=== PATIENT | female | born 1970 | race Caucasian/White ===

== ENCOUNTER 2025-01-08 15:43 | Emergency (ER) | payer OTHER, SELFPAY ==
[2025-01-08 15:45] VITALS: BP 136/95
--- NOTE | 2025-01-08 17:32 | ED.GENMED ---
History of Present Illness
General
Chief Complaint: Prescription Refill
Source: patient
Exam Limitations: none
Time Seen by Provider: 01/08/25 16:30
History of Present Illness
History of Present Illness:
Patient to the emergency department for 'prescription refill. States she was inpatient at a psych facility but signed her self out yesterday. She states she was not given a prescription for her medication. She reports that she takes lisinopril
gabapentin Seroquel and an albuterol inhaler as needed. Brought self to the emergency department for medication prescriptions.
Past History
Past History
ED Past Medical History: Psychiatric
Review of Systems
Review of Systems
Allergies reviewed?: Yes
All Other Systems: ROS reviewed and negative except as documented in HPI and ROS
Constitutional: Reports no symptoms
EENT: Reports no symptoms
Respiratory: Reports no symptoms
Cardiac: Reports no symptoms
ABD/GI: Reports no symptoms
: Reports no symptoms
Musculoskeletal: Reports no symptoms
Skin: Reports no symptoms
Neurological: Reports no symptoms
Psychiatric: Reports no symptoms
Phy Exam
General Physical Exam
General Presentation: well appearing and no apparent distress
General age: appears stated age
General Skin: warm and dry
General Habitus: normal
Musculoskeletal Exam
Musculoskeletal Exam: full ROM
Skin Exam
Skin Exam: normal color and warm/dry
Psychiatric Exam
Psychiatric Exam: normal mood/affect
Course
Vital Signs
Initial and Last Documented VS:
Initial Vital Signs
Temp Pulse Resp BP Pulse Ox
98.9 F 85 20 136/95 97
01/08/25 15:45 01/08/25 15:45 01/08/25 15:45 01/08/25 15:45 01/08/25 15:45
Last Documented Vital Signs
Temp Pulse Resp BP Pulse Ox
98.9 F 85 20 136/95 97
01/08/25 15:45 01/08/25 15:45 01/08/25 15:45 01/08/25 15:45 01/08/25 17:32
*Radiology
Radiology exam reviewed: radiology read reviewed
*Pulse Oximetry
SaO2: 97
Oxygen Mode of Delivery: Room air
Patient hypoxic: no
*Critical Care Note
Total Time (30-74mins, 75-104mins- exclusive of procedures): Not Applicable
Update Note
Update Note:
Patient to the emergency department requesting prescriptions for her medications. She signed out of the psych facility yesterday and states she was not given prescriptions for her medications. She reports that she takes lisinopril Seroquel
gabapentin and a as needed albuterol inhaler. I was able to confirm these medications and the correct doses with [facility] pharmacy in [place]. Prescriptions were rewritten and sent to her pharmacy. She is discharged home was instructed to
follow-up with her primary care provider and she is agreeable to this.
ED Attending Note
-
Portions of this chart may have been created with voice recognition software.� Occasional wrong word or��sound alike� substitutions may have occurred due to the inherent limitations of voice recognition software.
Discharge Plan
Departure
Patient Disposition: Home (Routine Discharge)
Date of Disposition: 01/08/25
Time of Disposition: 17:28
Patient with high blood pressure during this ER visit?: No
Condition: Good
Covid-19: Not Applicable
Discharge Problem:
Prescription refill
Instructions: General
Prescriptions:
New
quetiapine [Seroquel] 200 mg tablet
200 mg PO DAILY Qty: 30 0RF
albuterol sulfate [Ventolin HFA] 90 mcg/actuation HFA aerosol inhaler
2 puff inhalation Q6H PRN (Reason: shortness of breath or wheezing) Qty: 8.5 0RF
gabapentin 600 mg tablet
600 mg PO TID Qty: 90 0RF
lisinopril 5 mg tablet
5 mg PO DAILY Qty: 30 0RF
Referrals:
NONE,* [Family Provider, Internal Medicine]
Activity Restrictions/Additional Instructions:
Follow-up with your family doctor within the next week
Interventions
Interventions:
*Risk Screen - Suicide Last Done: 01/08/25 15:45
*General Assessment Last Done: 01/08/25 15:45
*Neglect/Abuse Screening Last Done: 01/08/25 15:45
*ED COVID-19 Vaccine History Last Done: 01/08/25 15:45
*ED Influenza Vaccine History Last Done: 01/08/25 15:45
*Nursing Disposition Last Done: 01/08/25 17:49
Discharge Date and Time
Discharge Date/Time: 01/08/25 17:49
Print Language: SWISS
== END 2025-01-08 17:49 | disposition home or self-care (01) ==
LOC: EMR 15:43
PROVIDERS: EMERGENCY PHYSICIAN Student in an Organized Health Care Education/Training Program
DX: Z76.0 Encounter for issue of repeat prescription (principal)
CPT/HCPCS: 99281